=== PATIENT | female | born 1955 | race Caucasian/White ===

== ENCOUNTER → 2017-09-29 | Outpatient (CLI) | payer BC ==
[~2017-09-29] MED LIST: BARIUM SULFATE 0.1% 450 ML SUSP PO ONE; IOHEXOL 300 MG/ML 75 ML VIAL. IV ONE
--- NOTE | 2017-09-29 12:12 | RAD ---
PQRS Compliance Statement: One or more of the following individualized dose reduction techniques were utilized for this examination: 1. Automated exposure control 2. Adjustment of the mA and/or kV according to patient size 3. Use of iterative reconstruction technique ABDOMEN/PELVIS CT ENTEROGRAPHY WITH CONTRAST 09/29/2017. Reason For Study: Change in bowel habits. Comparison Studies: None. Technique: Multiple axial images of the abdomen and pelvis were obtained following the intravenous administration of nonionic contrast. CT enterography protocol was utilized. Imaging was performed at 45 seconds delay. Volumen as oral contrast was also administered. Findings: The lung bases are clear. The liver, spleen, pancreas, adrenal glands, and kidneys are normal. Gallbladder is present without adjacent plantar changes. Mild colonic diverticulosis is present. There is a moderate amount of stool throughout the colon. There is no mucosal hyperenhancement or mural stratification. Terminal ileum appears normal. No bowel obstruction or dilatation. No ascites, lymphadenopathy, or free intraperitoneal air. Appendix is not definitively visualized. Course and caliber of the abdominal aorta is unremarkable. The urinary bladder is within normal limits given degree of distention. No suspicious pelvic masses are identified. There are no suspicious osseous lesions identified. IMPRESSION: No suspicious bowel abnormality is identified. Specifically, the terminal ileum is normal in appearance. The appendix is not definitively visualized. Electronically signed by: Betty Egan MD (09/29/2017 12:09 PM) [id number]
== END | disposition home or self-care (01) ==
LOC: CT 08:22
PROVIDERS: ATTEND Internal Medicine Gastroenterology
DX: R19.5 Other fecal abnormalities (principal); R15.2 Fecal urgency; R10.32 Left lower quadrant pain; K57.30 Diverticulosis of large intestine without perforation or abscess without bleeding
CPT/HCPCS: 74170; Q9967